=== PATIENT | male | born 1960 | race Caucasian/White ===

== ENCOUNTER 2021-08-07 18:41 | Emergency (ER) | payer OTHER ==
[2021-08-07 19:45] LABS: BASOPHIL 0.9 % (0-2); EOSINOPHIL 5.2 % (0-5); MCH 33.1 pg (25.0-31.0); MCV 94.6 fL (78.0-100.0); MONOCYTE 11.5 % (0-12); MPV 9.3 fL (6.0-9.5); NEUTROPHIL 48.2 % (41-80); NRBC 0; PLT 198 K/uL (150-400); RBC 4.23 M/uL (4.70-6.00); RDW 12.2 % (11.5-14.0); WBC 5.4 K/uL (4.0-10.5)
[2021-08-07 20:05] LABS: ALBUMIN 3.7 g/dL (3.4-5.0); BILIRUBIN - TOTAL 0.3 mg/dL (0.2-1.0); BUN/CREAT RATIO (CALC) 19.6 RATIO; CREATININE 0.97 mg/dL (0.67-1.17); GLOBULIN (CALCULATION) 3.4 g/dL; POTASSIUM 3.9 mmol/L (3.5-5.1); TOTAL PROTEIN 7.1 g/dL (6.4-8.2)
[2021-08-07 20:50] LABS: CORONAVIRUS 2019 SARS-COV-2 NEGATIVE (NEGATIVE); INFLUENZA A NAA NEGATIVE (NEGATIVE)
== END 2021-08-07 23:14 | disposition home or self-care (01) ==
LOC: FER 18:41
PROVIDERS: Emergency Medicine
DX: R07.89 Other chest pain (principal); I10 Essential (primary) hypertension; Z20.822 Contact with and (suspected) exposure to COVID-19; Z79.899 Other long term (current) drug therapy; Z91.018 Allergy to other foods
CPT/HCPCS: 36415; 71045; 80053; 83880; 84484; 85025; 85379; 93005; U0002